=== PATIENT | female | born 1975 | race Caucasian/White ===

== ENCOUNTER → 2016-11-02 | Outpatient (CLI) | payer OTHER | LOC: M LRY 11:45 | PROVIDERS: ATTEND Nurse Practitioner Family | DX: J02.0 Streptococcal pharyngitis (principal); R50.9 Fever, unspecified ==

== ENCOUNTER → 2018-03-24 | Outpatient (REF) | payer OTHER | LOC: M LAB REF 10:59 | DX: J02.9 Acute pharyngitis, unspecified (principal) ==

== ENCOUNTER → 2019-12-12 | Outpatient (CLI) | payer OTHER ==
--- NOTE | 2019-12-13 07:39 | REP ---
LEFT SECOND DIGIT: Four views of the left 2nd digit are performed. Metallic staple is seen the distal second digit. The underlying osseous structures are intact with no acute fracture or dislocation. Electronically Signed by Joe Lomax MD 12/13/2019 10:21 A
--- NOTE | 2019-12-13 07:40 | REP ---
LEFT SECOND DIGIT: Four views of the left 2nd digit performed. Comparison is made with prior exam this same day. The metallic foreign body has been removed from the distal aspect of the 2nd digit. The underlying osseous structures are intact with no acute fracture or dislocation. Electronically Signed by Joe Lomax MD 12/13/2019 10:21 A
== END ==
LOC: M WUC 16:56
PROVIDERS: ATTEND Physician Assistant
DX: S61.341A Puncture wound with foreign body of left index finger with damage to nail, initial encounter (principal); X58.XXXA Exposure to other specified factors, initial encounter; Y92.89 Other specified places as the place of occurrence of the external cause